=== PATIENT | female | born 1935 | race Caucasian/White ===

== ENCOUNTER 2023-02-20 20:03 | Inpatient (IN) ==
[2023-02-20] MEDS ORDERED: Morphine 4 MG/ML VIAL (1 ml) IV ONE (20:19)
[2023-02-20] MEDS ORDERED: Labetalol IV 5 MG/ML 20 ml VIAL IV PUSH ONE (20:20)
[2023-02-20] MEDS ORDERED: Ondansetron 4 mg VIAL 2 MG/ML 2 ml VIAL IV ONE (20:31)
[2023-02-20 21:09] LABS: ABS Lymphocytes 0.3 10^3/uL (1.0-4.8); ABS Monocytes 0.7 10^3/uL (0.0-0.9); ABS Neutrophils 9.3 10^3/uL (1.5-7.6); Hematocrit 32.4 % (35-45); Hemoglobin 10.9 g/dL (11.5-14.3); Lymphocyte % 2.8 %; Mean Corpuscular Hgb Conc 33.6 g/dL (31-36); Mean Corpuscular Volume 83.4 fL (80-97); Mean Platelet Volume 9.2 fL (7.5-11.2); Platelet Count 120 10^3/uL (150-450); Red Blood Count 3.88 10^6/uL (3.63-4.92); Red Cell Distribution Width 14.8 % (12-17); White Blood Count 10.3 10^3/uL (3.8-11.8)
[2023-02-20] MEDS ORDERED: Morphine 2 MG/ML SYRINGE IV PRN (21:13)
[2023-02-20 21:14] LABS: INR 1.37 (0.88-1.18)
[2023-02-20] MEDS ORDERED: NS 0.9% 1000 ml BAG 1,000 ML IV SCH (21:15)
[2023-02-20 21:45] LABS: Albumin 3.3 g/dL (3.2-5.2); Albumin/Globulin Ratio 1.2 (1-3); C Reactive Protein 140.58 mg/L (<8.01); Calcium 8.2 mg/dL (8.6-10.3); Creatinine, Serum 2.35 mg/dL (0.51-0.95); Globulin 2.8 g/dL (2-4); Potassium 4.1 mmol/L (3.5-5.0); Total Bilirubin 0.7 mg/dL (0.2-1.0); Total Protein 6.1 g/dL (6.4-8.9); eGFR CKD-EPI 19.4 (>60)
[2023-02-20 21:59] LABS: TSH Ultra Thyroid Stim Horm 2.02 mcIU/mL (0.34-5.60)
[2023-02-21 00:41] LABS: Hematocrit 29.3 % (35-45); Hemoglobin 10.1 g/dL (11.5-14.3)
[2023-02-21 06:16] LABS: Hematocrit 27.2 % (35-45); Hemoglobin 9.2 g/dL (11.5-14.3); Mean Corpuscular Hemoglobin 28.2 pg (27-33); Mean Corpuscular Hgb Conc 33.8 g/dL (31-36); Mean Corpuscular Volume 83.4 fL (80-97); Mean Platelet Volume 9.4 fL (7.5-11.2); Platelet Count 112 10^3/uL (150-450); Red Blood Count 3.26 10^6/uL (3.63-4.92); Red Cell Distribution Width 14.8 % (12-17); White Blood Count 9.2 10^3/uL (3.8-11.8)
[2023-02-21 07:04] LABS: Calcium 7.7 mg/dL (8.6-10.3); Creatinine, Serum 3.12 mg/dL (0.51-0.95); Potassium 4.3 mmol/L (3.5-5.0); eGFR CKD-EPI 13.8 (>60)
[2023-02-21 15:22] LABS: Hematocrit 28.8 % (35-45); Hemoglobin 9.6 g/dL (11.5-14.3)
[2023-02-21 16:06] LABS: Calcium 7.8 mg/dL (8.6-10.3); Creatinine, Serum 3.9 mg/dL (0.51-0.95); Potassium 4.1 mmol/L (3.5-5.0); eGFR CKD-EPI 10.6 (>60)
[2023-02-21] MEDS ORDERED: Polyethylene Glycol 3350 17 GM PACKET PO PRN (17:23)
[2023-02-21] MEDS ORDERED: Senna TAB 8.6 mg TAB PO PRN (17:23)
[2023-02-21] MEDS ORDERED: Morphine ORAL CONCENTRATE 5 MG/0.25 ML ORAL.SYRIN PO PRN (17:23)
[2023-02-23] MEDS: Ondansetron ODT 4 mg TAB 4 MG TAB SL PRN (23:44)
[2023-02-24 03:37] VITALS: BP 145/72
[2023-02-24] MEDS: Ondansetron ODT 4 mg TAB 4 MG TAB SL PRN (10:00)
== END 2023-02-24 10:12 | disposition hospice, home (50) | DRG 698 ==
LOC: ED 20:03 → EDHOLD 21:27 → MEDTELE 02-21 08:08
PROVIDERS: ADMIT Hospitalist; ATTEND Internal Medicine